=== PATIENT | female | born 1965 | race Caucasian/White ===

== ENCOUNTER → 2016-09-30 | Day surgery (SDC) | payer BC ==
[~2016-09-30] VITALS: Ht 162.6 cm; Wt 83.0 kg
[~2016-09-30] MED LIST: BACITRACIN PWD 50,000 UNITS VIAL As Ordered ONE; BUPIVACAINE HCL 0.25% 30 ML VIAL As Ordered ONE; BUPIVACAINE HCL 0.5% 30 ML VIAL As Ordered ONE; HYDR25TAB PO; LIDOCAINE 2% INJ 100 MG/5 ML SDV (FOR ANES.) As Ordered ONE; LIDOCAINE 2% MDV 20 ML VIAL As Ordered ONE; LR 1,000 ML IV SCH; MIDAZOLAM INJ 2 MG/2 ML VIAL (J2250) As Ordered ONE; MOTR200T40 PO; NEOSPORIN GU IRRIG 20 ML VIAL As Ordered ONE; NEUR100C PO; NUCY200T PO; ONDANSETRON 4MG/2ML VIAL (J2405) IV PRN; PANT40TA2 PO; PERC7.5T3 PO; PERCOCET 5MG/325MG TAB PO PRN; PROPOFOL 200 MG/20 ML VIAL As Ordered ONE; ceFAZolin SOD 1 GM in D5W MINI-BAG PLUS 50 ML IV ONE; dexameTHASONE 4 MG/ML 1ML VIAL (J1100) As Ordered ONE; fentaNYL 100 MCG/2 ML INJECTION (J3010) As Ordered ONE
[2016-09-30 13:10] VITALS: BP 115/73
--- NOTE | 2016-09-30 21:41 | REP ---
Clinical: Status post plantar fasciotomy. Technique: Portable AP, lateral, oblique views. Findings: Postoperative changes involving the second toe noted. Remainder of the osseous structures appear intact and normal. Lateral view demonstrates minuscule calcaneal heal spur. No subcutaneous emphysema or radiodense foreign body. Impression: Postoperative changes involving the second toe. Signed by Gulshan Song MD 09/30/2016 09:32 P
--- NOTE | 2016-10-01 07:41 | RO ---
DATE OF PROCEDURE: 09/30/2016 PREOPERATIVE DIAGNOSES: Plantar fasciitis right foot. Long second metatarsal right foot. Hammertoe deformity second toe right foot. Torn plantar plate second metatarsal phalangeal joint right foot. POSTOPERATIVE DIAGNOSES: Plantar fasciitis right foot. Long second metatarsal right foot. Hammertoe deformity second toe right foot. Torn plantar plate second metatarsal phalangeal joint right foot. PROCEDURE: 1. Endoscopic plantar fasciotomy right foot. 2. Second metatarsal osteotomy with internal screw fixation 2 mm x 13 mm Arthrex quick anchor times one right foot. 3. Proximal interphalangeal joint arthroplasty right foot. 4. Repair of plantar plate second metatarsal phalangeal joint right foot. SURGEON: Sanket Langston DPM CORONER/MEDICAL EXAMINER: None. ANESTHESIA: Local, monitored anesthesia care (MAC). IRRIGATION: Dilute bacitracin, neomycin and polymyxin B solution. HARDWARE UTILIZED: Arthrex 2 x 13 quick fix anchor. DigiFuse 2.0 x 0 degree angled. ESTIMATED BLOOD LOSS: Less than 5 mL. HEMOSTASIS: Ankle pneumatic tourniquet at 200 mmHg for 59 minutes. DESCRIPTION OF PROCEDURE: On 09/30/2016, this 50-year-old white female was taken from her hospital room to the operating room and placed on the operating room table in a supine position. Following the induction of IV sedation and local and regional anesthesia, the right lower extremity was prepped and draped in the usual aseptic manner. Attention was directed to the patient's right foot where the following procedure was performed. ENDOSCOPIC PLANTAR FASCIOTOMY RIGHT FOOT: Attention was directed to the patient's right foot where a vertical 5 mm incision was placed just distal to the medial tuberosity of the right foot utilizing dissection scissors. Dissection was carried down to the level of the plantar fascia. Utilizing a tissue distender, a tunnel was created across the plantar fascia directly inferior to the plantar fascia. A center line Arthrex endoscopic blade was then introduced into the wound and under direct visualization 3/4 of the plantar fascia was cut until the first layer of muscle was visible. The scope was then removed. The wound was flushed with copious amounts of dilute bacitracin, neomycin and polymyxin B solution. Attention was directed toward closure where the subcutaneous tissues were coapted and maintained with #4-0 Vicryl in a simple interrupted type fashion. The skin incision was coapted and maintained with one stitch of #4-0 Prolene in a horizontal mattress type fashion. Attention was then directed to the second metatarsal where the following procedure was performed: SECOND METATARSAL OSTEOTOMY WITH INTERNAL SCREW FIXATION 2 MM X 13 MM ARTHREX QUICK ANCHOR TIMES ONE RIGHT FOOT: Attention was directed to the patient's foot where an incision was made from the proximal interphalangeal joint to approximately 3 cm distal to the second metatarsal on the right foot. The incision was deepened through subcutaneous tissues. All coursing venous tributaries as encountered were electrocoagulated. A linear capsulotomy was then performed over the metatarsal phalangeal joint. The joint was exposed and utilizing a metatarsal elevator the plantar plate was released. Utilizing a sagittal saw, a Saulo osteotomy was performed starting at the articular cartilage of the second metatarsal paralleling the plantar surface of the foot. The metatarsal head was pushed back 10 mm and temporarily held with a Steinmann pin. The following procedure was then performed: PROXIMAL INTERPHALANGEAL JOINT ARTHROPLASTY RIGHT FOOT: Attention was directed to the patient's second toe where a transverse tenotomy and capsulotomy was performed at the level of the proximal interphalangeal joint and the extensor expansion and matute was released from the tendon. The medial and lateral collateral ligaments were then sharply dissected free from the head of the proximal phalanx. Utilizing a power saw, an osteotomy was performed at the anatomical neck of the proximal phalanx from dorsal to plantar medial to lateral through and through and extirpated from the wound. The base of the middle phalanx was then osteotomized from dorsal to plantar through and through. The cartilage was removed and utilizing a 2.0 x 0 degree DigiFuse the implant was pressed into the joint area. The implant was not completely compressed since this would cause the second toe to be shorter than the third and giving a cosmetically unappealing toe. Utilizing Steinmann pins, two tunnels were created through the proximal phalanx. The plantar plate was then inspected and the following procedure was performed: REPAIR OF PLANTAR PLATE SECOND METATARSAL PHALANGEAL JOINT RIGHT FOOT: Two tunnels were created through the proximal phalanx, wires being left in place to ensure that the tunnels did not overlap. Utilizing a mini Scorpion, #0 FiberWire was placed through the plantar plate. The plantar plate was noted to be ruptured on the lateral side. The tear was completed and freed to allow closure. The plantar aspect of the proximal phalanx was rasped to a create a rough surface for better adherence of the plantar plate. Utilizing a mini Hewson type suture retriever, the suture ends were placed through the previously placed tunnels through the proximal phalanx and the toe was placed in a plantar direction slightly over corrected and then the FiberWire was tied over the plantar plate to allow healing of the plantar plate. The wound was flushed with copious amounts of dilute bacitracin, neomycin and polymyxin B solution. 5 mm of overlapping bone was then resected off the shelf of the metatarsal. The metatarsal was brought into its corrected position. The osteotomy was fixated with a 2 mm x 13 mm Arthrex quick fix screw. The osteotomy was noted to be stable in all three cardinal planes. The dorsal edge was rasped to a smooth and even contour. The wound was again flushed with copious amounts of dilute bacitracin, neomycin and polymyxin B solution. The subcutaneous tissues were coapted and maintained utilizing #4-0 Monocryl in a simple interrupted type fashion. The skin incision was coapted and maintained utilizing #4-0 Prolene in a simple interrupted and horizontal mattress type fashion. Attention was then directed towards bandaging where a sterile compressive bandage was applied consisting of Adaptic, 4x4s, 4x4 splints, Laurence and Coban. The ankle pneumatic tourniquet was deflated and instantaneous capillary filling time was noted in digits 1-5 of the patients right foot. The patient having apparently tolerated the surgical procedure well was taken from the operating room (OR) to the recovery room with vital signs stable and the patient afebrile for further monitoring by the anesthesia department. All surgical specimens removed during the operative procedure were sent to pathology for gross and microscopic examination. Postoperative instructions will be given upon discharge.
== END | disposition home or self-care (01) ==
LOC: M SDC 09:23
PROVIDERS: ATTEND Podiatrist
DX: M72.2 Plantar fascial fibromatosis (principal); M20.41 Other hammer toe(s) (acquired), right foot; M20.61 Acquired deformities of toe(s), unspecified, right foot; Q66.89 Other specified congenital deformities of feet; I10 Essential (primary) hypertension; K21.9 Gastro-esophageal reflux disease without esophagitis; F17.210 Nicotine dependence, cigarettes, uncomplicated; M76.71 Peroneal tendinitis, right leg; M79.671 Pain in right foot; Z79.899 Other long term (current) drug therapy; Z95.0 Presence of cardiac pacemaker
CPT/HCPCS: 28200; 28285; 28308; 29893; 73630; 88300; J0690; J1100; J2250; J3010

== ENCOUNTER → 2021-12-30 | Outpatient (CLI) | payer BC ==
[~2021-12-30] MED LIST changes: -BACITRACIN PWD 50,000 UNITS VIAL As Ordered ONE; -BUPIVACAINE HCL 0.25% 30 ML VIAL As Ordered ONE; -BUPIVACAINE HCL 0.5% 30 ML VIAL As Ordered ONE; +HYDR-3490 PO; -HYDR25TAB PO; -LIDOCAINE 2% INJ 100 MG/5 ML SDV (FOR ANES.) As Ordered ONE; -LIDOCAINE 2% MDV 20 ML VIAL As Ordered ONE; -LR 1,000 ML IV SCH; -MIDAZOLAM INJ 2 MG/2 ML VIAL (J2250) As Ordered ONE; -MOTR200T40 PO; +MOTR200T44 PO; -NEOSPORIN GU IRRIG 20 ML VIAL As Ordered ONE; -ONDANSETRON 4MG/2ML VIAL (J2405) IV PRN; -PANT40TA2 PO; +PANT40TA29 PO; +PERC7.5T11 PO; -PERC7.5T3 PO; -PERCOCET 5MG/325MG TAB PO PRN; -PROPOFOL 200 MG/20 ML VIAL As Ordered ONE; -ceFAZolin SOD 1 GM in D5W MINI-BAG PLUS 50 ML IV ONE; -dexameTHASONE 4 MG/ML 1ML VIAL (J1100) As Ordered ONE; -fentaNYL 100 MCG/2 ML INJECTION (J3010) As Ordered ONE
== END ==
LOC: M PAIN 14:00
PROVIDERS: ATTEND Nurse Practitioner Family
DX: M96.1 Postlaminectomy syndrome, not elsewhere classified (principal); F17.210 Nicotine dependence, cigarettes, uncomplicated; Z86.59 Personal history of other mental and behavioral disorders; Z88.2 Allergy status to sulfonamides; Z88.8 Allergy status to other drugs, medicaments and biological substances; E66.01 Morbid (severe) obesity due to excess calories; Z68.43 Body mass index [BMI] 50.0-59.9, adult; Z79.899 Other long term (current) drug therapy

== ENCOUNTER → 2022-04-03 | Outpatient (CLI) | payer BC | LOC: M RAD 02-12 10:36 → M PLARAD 12:31 | PROVIDERS: ATTEND Nurse Practitioner Family | DX: M51.27 Other intervertebral disc displacement, lumbosacral region (principal); M96.1 Postlaminectomy syndrome, not elsewhere classified; M46.96 Unspecified inflammatory spondylopathy, lumbar region ==

== ENCOUNTER → 2022-05-20 | Outpatient (CLI) | payer BC | LOC: M PAIN 11:45 | PROVIDERS: ATTEND Nurse Practitioner Family | DX: M96.1 Postlaminectomy syndrome, not elsewhere classified (principal); G89.29 Other chronic pain; I10 Essential (primary) hypertension; F17.210 Nicotine dependence, cigarettes, uncomplicated; Z86.59 Personal history of other mental and behavioral disorders; Z88.1 Allergy status to other antibiotic agents; Z88.2 Allergy status to sulfonamides; Z88.8 Allergy status to other drugs, medicaments and biological substances; E66.01 Morbid (severe) obesity due to excess calories; Z68.42 Body mass index [BMI] 45.0-49.9, adult; Z79.899 Other long term (current) drug therapy ==

== ENCOUNTER → 2022-06-03 | Outpatient (CLI) | payer BC | LOC: M PAIN 15:00 | PROVIDERS: ATTEND Nurse Practitioner Family | DX: M96.1 Postlaminectomy syndrome, not elsewhere classified (principal); G89.29 Other chronic pain; I10 Essential (primary) hypertension; F17.210 Nicotine dependence, cigarettes, uncomplicated; Z86.59 Personal history of other mental and behavioral disorders; Z88.1 Allergy status to other antibiotic agents; Z88.2 Allergy status to sulfonamides; Z88.8 Allergy status to other drugs, medicaments and biological substances; E66.01 Morbid (severe) obesity due to excess calories; Z68.42 Body mass index [BMI] 45.0-49.9, adult; Z79.899 Other long term (current) drug therapy ==

== ENCOUNTER → 2022-10-06 | Outpatient (CLI) | payer BC | LOC: M LABSMTC 10:27 | PROVIDERS: ATTEND Anesthesiology | DX: Z01.812 Encounter for preprocedural laboratory examination (principal); Z20.822 Contact with and (suspected) exposure to COVID-19 ==

== ENCOUNTER → 2022-10-08 | Outpatient (CLI) | payer BC ==
[~2022-10-08] MED LIST changes: +ISOVUE-M 300 61% 15ML VIAL As Ordered ONE; +LIDOCAINE 1% SDV 30ML VIAL As Ordered ONE; +diazePAM 5MG TABLET As Ordered ONE; +methylPREDNISolone SUSP 40MG/ML 1ML VIAL (DEPO MEDROL) As Ordered ONE; +oxyCODONE 5MG TAB As Ordered ONE
== END ==
LOC: M PAIN 08:15
PROVIDERS: ATTEND Anesthesiology
DX: M96.1 Postlaminectomy syndrome, not elsewhere classified (principal); G89.29 Other chronic pain; I10 Essential (primary) hypertension; F17.210 Nicotine dependence, cigarettes, uncomplicated; Z86.59 Personal history of other mental and behavioral disorders; Z88.1 Allergy status to other antibiotic agents; Z88.2 Allergy status to sulfonamides; Z88.8 Allergy status to other drugs, medicaments and biological substances; E66.01 Morbid (severe) obesity due to excess calories; Z68.43 Body mass index [BMI] 50.0-59.9, adult; Z79.899 Other long term (current) drug therapy

== ENCOUNTER → 2022-11-03 | Outpatient (CLI) | payer BC ==
[~2022-11-03] MED LIST changes: -ISOVUE-M 300 61% 15ML VIAL As Ordered ONE; -LIDOCAINE 1% SDV 30ML VIAL As Ordered ONE; -diazePAM 5MG TABLET As Ordered ONE; -methylPREDNISolone SUSP 40MG/ML 1ML VIAL (DEPO MEDROL) As Ordered ONE; -oxyCODONE 5MG TAB As Ordered ONE
== END ==
LOC: M PAIN 10:00
PROVIDERS: ATTEND Nurse Practitioner Family
DX: M96.1 Postlaminectomy syndrome, not elsewhere classified (principal); G89.29 Other chronic pain; I10 Essential (primary) hypertension; F17.210 Nicotine dependence, cigarettes, uncomplicated; Z86.59 Personal history of other mental and behavioral disorders; Z88.1 Allergy status to other antibiotic agents; Z88.2 Allergy status to sulfonamides; Z88.8 Allergy status to other drugs, medicaments and biological substances; E66.01 Morbid (severe) obesity due to excess calories; Z68.43 Body mass index [BMI] 50.0-59.9, adult; Z79.899 Other long term (current) drug therapy

== ENCOUNTER → 2023-05-11 | Outpatient (CLI) | payer BC ==
[~2023-05-11] MED LIST changes: +ISOVUE-M 300 61% 15ML VIAL As Ordered ONE; +LIDOCAINE 1% SDV 30ML VIAL As Ordered ONE; +dexAMETHasone 10MG/1ML VIAL PRES.FREE As Ordered ONE; +diazePAM 5MG TABLET As Ordered ONE; +oxyCODONE 5MG TAB As Ordered ONE
== END ==
LOC: M PAIN 11:00
PROVIDERS: ATTEND Anesthesiology
DX: M96.1 Postlaminectomy syndrome, not elsewhere classified (principal); G89.29 Other chronic pain; I10 Essential (primary) hypertension; F17.210 Nicotine dependence, cigarettes, uncomplicated; Z86.59 Personal history of other mental and behavioral disorders; Z88.1 Allergy status to other antibiotic agents; Z88.2 Allergy status to sulfonamides; Z88.8 Allergy status to other drugs, medicaments and biological substances; E66.01 Morbid (severe) obesity due to excess calories; Z68.42 Body mass index [BMI] 45.0-49.9, adult; Z79.899 Other long term (current) drug therapy
CPT/HCPCS: 64483; J0665; J1100; Q9967